=== PATIENT | male | born 1995 | race Caucasian/White ===

== ENCOUNTER 2020-07-02 13:24 | Day surgery (SDC) | payer OTHER, MEDICAID, SELFPAY ==
[~2020-07-02] VITALS: Ht 167.6 cm; Wt 69.9 kg
[2020-07-02 13:37] VITALS: BP_SYST 139
[2020-07-02] MEDS ORDERED: NACL 0.9% 1,000 ML IV ONE (13:45)
[2020-07-02] MEDS ORDERED: KETOROLAC TROMETHAMINE 30 MG VIAL IVP ONE (13:45)
[2020-07-02] MEDS ORDERED: ONDANSETRON HCL 4 MG/2 ML VIAL IVP ONE ×2 (13:45→18:15)
[2020-07-02 14:03] LABS: BASOPHILS % (AUTO) 0.2 % (0.0-2.0); EOSINOPHILS # (AUTO) 0.1 K/uL (0.0-0.4); EOSINOPHILS % (AUTO) 0.3 % (0.0-4.0); HEMATOCRIT 52.2 % (36-54); HEMOGLOBIN 18.2 g/dL (14.0-18.0); LYMPHOCYTES # (AUTO) 0.7 K/uL (1.0-5.5); LYMPHOCYTES % (AUTO) 3.7 % (20.5-51.5); MEAN CORPUSCULAR HEMOGLOBIN 31 pg (27-31); MEAN CORPUSCULAR HGB CONC 35 % (32-36); MEAN CORPUSCULAR VOLUME 89 fL (79.0-98.0); MONOCYTES # (AUTO) 0.9 K/uL (0.0-1.0); MONOCYTES % (AUTO) 4.4 % (1.7-9.3); NEUTROPHILS # (AUTO) 17.8 K/uL (1.8-7.7); NEUTROPHILS % (AUTO) 91.4 % (40.0-70.0); PLATELET COUNT (AUTO) 245 K/uL (130-430); RED BLOOD CELL COUNT(AUTO) 5.89 MIL/uL (4.2-6.2); RED CELL DISTRIBUTION WIDTH 13.2 % (9.0-15.0); WHITE BLOOD COUNT (AUTO) 19.4 K/uL (4.8-10.8)
[2020-07-02 14:14] LABS: CALCIUM 9.4 mg/dL (8.4-11.0); CREATININE 0.97 mg/dL (0.55-1.30)
[2020-07-02 14:19] LABS: ALBUMIN 4.8 g/dL (3.4-4.8); TOTAL BILIRUBIN 0.9 mg/dL (0.0-1.0)
[2020-07-02] MEDS ORDERED: PIPERACILLIN/TAZO 3.375 GM in NS 50 ML IV ONE (15:30)
[2020-07-02] MEDS ORDERED: PIPERACILLIN/TAZOBACTAM 3.375 GM/VIAL (ZOSYN) IV ONE (15:41)
[2020-07-02] MEDS ORDERED: NACL 0.9% 1,000 ML IV SCH (17:00)
[2020-07-02] MEDS ORDERED: HYDROmorphone 1 MG INJ. 1 MG/ML AMPUL IVP PRN ×4 (17:00→22:00)
[2020-07-02] MEDS ORDERED: MORPHINE 4 MG/ML INJ. SYRINGE IVP ONE (18:30)
[2020-07-02 20:02] VITALS: BP_SYST 127
[2020-07-02 20:29] VITALS: BP_SYST 127
[2020-07-02 20:50] VITALS: BP_SYST 126
[2020-07-02] MEDS ORDERED: NALOXONE HCL 0.4 MG/ML AMP (NARCAN) IVP PRN (22:00)
[2020-07-02] MEDS ORDERED: NS IRRIG SOLN 1000 ML IR ONE (22:00)
[2020-07-02] MEDS ORDERED: KETOROLAC TROMETHAMINE 15 MG VIAL IVP PRN (22:00)
[2020-07-02] MEDS ORDERED: KETOROLAC TROMETHAMINE 30 MG VIAL IVP PRN ×3 (22:00)
[2020-07-02] MEDS ORDERED: METOCLOPRAMIDE HCL 10 MG/2 ML VIAL ONE (22:00)
[2020-07-02] MEDS ORDERED: ROCURONIUM BROMIDE 10 MG/ML (ZEMURON) ONE (22:00)
[2020-07-02] MEDS ORDERED: LR 1,000 ML IV SCH (22:00)
[2020-07-02] MEDS ORDERED: NS 1000 ML IV.SOLN IV ONE (22:00)
[2020-07-02] MEDS ORDERED: fentaNYL CITRATE/PF 100 MCG/2 ML AMP ONE (22:00)
[2020-07-02] MEDS ORDERED: MIDAZOLAM HCL 5 MG/ML VIAL (VERSED) IV ONE (22:00)
[2020-07-02] MEDS ORDERED: SEVOFLURANE 15 MIN GAS INH ONE (22:00)
[2020-07-02] MEDS ORDERED: ONDANSETRON HCL 4 MG/2 ML VIAL ONE (22:00)
[2020-07-02] MEDS ORDERED: SUCCINYLCHOLINE CHLORIDE 20 MG/ML(QUELICIN) ONE (22:00)
[2020-07-02] MEDS ORDERED: LIDOCAINE 1% 10 MG/ML, 20 ML MDV ONE (22:00)
[2020-07-02] MEDS ORDERED: KETOROLAC TROMETHAMINE 30 MG VIAL ONE (22:00)
[2020-07-02] MEDS ORDERED: CEFAZOLIN 2 GM IVPB PREMIX 50 ML IV ONE (22:00)
[2020-07-02] MEDS ORDERED: GLYCOPYRROLATE 0.2 MG/ML VIAL ONE (22:00)
[2020-07-02] MEDS ORDERED: ONDANSETRON HCL 4 MG/2 ML VIAL IVP PRN (22:00)
[2020-07-02] MEDS ORDERED: NEOSTIGMINE METHYLSULFATE 1 MG/ML, 10 ML VIAL ONE (22:00)
[2020-07-02] MEDS ORDERED: PROPOFOL 200MG/ 20ML VIAL (DIPRIVAN) IV ONE (22:00)
[2020-07-02 23:25] VITALS: BP_SYST 124
[2020-07-03] MEDS ORDERED: PIPERACILLIN/TAZO 3.375 GM in NS 50 ML IV SCH ×2
== END 2020-07-02 23:31 | disposition home or self-care (01) ==
LOC: SED 13:24 → INTOOBSV 16:48 → SMU 16:48 → SDS 16:48 → UNDOADMOB 16:48 → SMU 16:48 → UNDODISOB 23:31 → SDS 23:31
PROVIDERS: ATTEND Family Medicine Addiction Medicine
DX: K35.80 Unspecified acute appendicitis (principal)
CPT/HCPCS: 36415; 44970; 74176; 80053; 83690; 85025; 87081; 87426; 88304; 96361; 96365; 96375; 96376; 99285; C1727; J0330; J0690; J1885; J2001; J2250; J2270; J2405; J2543; J2704; J2710; J2765; J3010; J3490; J7030; G0378